=== PATIENT | male | born 1960 | race Two or more races ===

== ENCOUNTER 2022-01-30 10:20 | Emergency (ER) | payer MEDICAID ==
[~2022-01-30] VITALS: Ht 152.4 cm; Wt 72.6 kg
[2022-01-30 10:32] VITALS: BP 141/81
[2022-01-30] MEDS ORDERED: ATOR10TA PO (10:34)
[2022-01-30] MEDS ORDERED: METF-442 PO (10:34)
[2022-01-30] MEDS ORDERED: GLIP5TAB13 PO (10:34)
--- NOTE | 2022-01-30 10:37 | NUR ---
DR VEGA AT BEDSIDE FOR EVAL
[2022-01-30] MEDS ORDERED: SULF1TAB48 PO (10:41)
[2022-01-30] MEDS ORDERED: CEPH500C2 PO (10:41)
[2022-01-30] MEDS ORDERED: SILV20CR13 TP (10:41)
== END 2022-01-30 10:53 | disposition home or self-care (01) ==
LOC: ER 10:26
DX: L73.9 Follicular disorder, unspecified (principal); E78.5 Hyperlipidemia, unspecified; E11.9 Type 2 diabetes mellitus without complications; Z79.899 Other long term (current) drug therapy; Z79.84 Long term (current) use of oral hypoglycemic drugs
CPT/HCPCS: 82962-TC

== ENCOUNTER 2022-03-21 12:42 | Emergency (ER) | payer MEDICAID, OTHER ==
[~2022-03-21] VITALS: Ht 165.1 cm; Wt 68.5 kg
[~2022-03-21 12:42] MED LIST: ATOR10TA PO; CEPH500C2 PO; GLIP5TAB13 PO; METF-442 PO; SILV20CR13 TP; SULF1TAB48 PO
[2022-03-21 13:19] LABS: BASOPHILS # (AUTO) 0.1 K/uL (0.0-0.2); BASOPHILS % (AUTO) 1.4 % (0.0-2.0); EOSINOPHILS % (AUTO) 3.1 % (0.0-6.0); HEMATOCRIT 44 % (39-51); HEMOGLOBIN 15.4 g/dL (13.5-17.5); LYMPHOCYTES # (AUTO) 1.4 K/uL (0.8-4.8); LYMPHOCYTES % (AUTO) 19.1 % (20.0-44.0); MEAN CORPUSCULAR HGB CONC 35 g/dl (31.0-36.0); MEAN CORPUSCULAR VOLUME 85 fL (80-96); MONOCYTES # (AUTO) 0.6 K/uL (0.1-1.30); MONOCYTES % (AUTO) 7.8 % (2.0-12.0); NEUTROPHILS # (AUTO) 5.1 K/uL (1.8-8.9); NEUTROPHILS % (AUTO) 68.6 % (43.0-81.0); PLATELET COUNT (AUTO) 244 K/uL (150-450); RED BLOOD CELL COUNT(AUTO) 5.16 MIL/uL (4.5-6.0); WHITE BLOOD COUNT (AUTO) 7.5 K/uL (4.3-11.0)
[2022-03-21] MEDS ORDERED: methylPREDNISolone SOD SUCC 125 MG/2ML VIAL ONE (13:20)
[2022-03-21] MEDS ORDERED: ALBUTEROL FS 2.5 MG/3 ML VIAL.NEB ONE (13:25)
[2022-03-21] MEDS ORDERED: IPRATROPIUM NEB FS 0.5 MG/2.5 ML AMPUL.NEB ONE (13:25)
[2022-03-21] MEDS ORDERED: methylPREDNISolone SOD SUCC 125 MG/2ML VIAL IV ONE (13:30)
[2022-03-21] MEDS ORDERED: IPRATROPIUM NEB FS 0.5 MG/2.5 ML AMPUL.NEB NEB ONE (13:30)
[2022-03-21] MEDS ORDERED: ALBUTEROL FS 2.5 MG/3 ML VIAL.NEB CONTNEB ONE (13:30)
[2022-03-21 14:09] LABS: CALCIUM, SERUM 8.8 mg/dL (8.5-10.1); CARBON DIOXIDE 26 mmol/L (21-32); CHLORIDE 107 mmol/L (98-107); CREATININE 0.8 mg/dL (0.6-1.3); GLUCOSE 140 mg/dL (74-106); POTASSIUM 3.2 mmol/L (3.5-5.1); SODIUM SERUM 140 mmol/L (136-145); UREA NITROGEN, BLOOD 12 mg/dL (7-18)
[2022-03-21] MEDS ORDERED: PRED20TA PO (15:58)
[2022-03-21] MEDS ORDERED: ALBU18HF2 INH (16:12)
[2022-03-21] MEDS ORDERED: BENZ-13 PO (16:12)
[2022-03-21 16:17] VITALS: BP 131/75
== END 2022-03-21 16:18 | disposition home or self-care (01) ==
LOC: ER 12:49
DX: J40 Bronchitis, not specified as acute or chronic (principal); R07.89 Other chest pain; I10 Essential (primary) hypertension; E78.5 Hyperlipidemia, unspecified; E11.9 Type 2 diabetes mellitus without complications; Z11.52 Encounter for screening for COVID-19; Z79.899 Other long term (current) drug therapy
CPT/HCPCS: 36415; 71045; 80048; 84484 ×2; 85025; 87070; 87880; 93005 ×2; 94644; 94799; 96374; 99285; J2930; 86403-TC

== ENCOUNTER 2023-01-04 09:45 | Emergency (ER) | payer BC, OTHER ==
[~2023-01-04] VITALS: Ht 152.4 cm; Wt 75.7 kg
[~2023-01-04 09:45] MED LIST changes: +ALBU18HF2 INH; +BENZ-13 PO; +PRED20TA PO
[2023-01-04 09:53] VITALS: BP 128/91
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
--- NOTE | 2023-01-04 10:02 | NUR ---
Kortney pa in ED - 01/04/[address] Patterson at bedside.
--- NOTE | 2023-01-04 10:03 | NUR ---
/PA AT BEDSIDE FOR EVAL
--- NOTE | 2023-01-04 10:11 | NUR ---
Dr. Patterson at bedside.
--- NOTE | 2023-01-04 10:18 | NUR ---
ACCUCHECK BS 104MG/DL; DR CH AWARE.
[2023-01-04] MEDS ORDERED: CEPH500C2 PO (10:31)
[2023-01-04] MEDS ORDERED: NAPR-1164 PO (10:31)
--- NOTE | 2023-01-04 10:38 | NUR ---
Patient discharged to home in stable condition. Written and verbal after care instructions given. Patient verbalizes understanding of instruction.
== END 2023-01-04 10:39 | disposition home or self-care (01) ==
LOC: ER 09:51
DX: L02.416 Cutaneous abscess of left lower limb (principal); I10 Essential (primary) hypertension; E78.5 Hyperlipidemia, unspecified; E11.9 Type 2 diabetes mellitus without complications; Z59.00 Homelessness unspecified; Z79.84 Long term (current) use of oral hypoglycemic drugs; Z79.899 Other long term (current) drug therapy
CPT/HCPCS: 82962-TC